=== PATIENT | male | born 1995 | race Caucasian/White ===

== ENCOUNTER 2017-11-25 14:25 | Emergency (ER) | payer SELFPAY ==
[2017-11-25 14:44] VITALS: BP 114/75
--- NOTE | 2017-11-25 15:36 | UC ---
FLU HPI - HPI Summary HPI Summary: 22 male presents to with complaints of feeling dizzy, achey, congested and having fever/chills. States symptoms just began ~3 hours ago. States he was at work and has been exposed to the flu. Is concerned and wanted to get tested. No other complaints. Denies coughing or sore throat. No medications and no PMHx. did have flu shot this year. - History of Current Complaint Chief Complaint: UCGeneralIllness Stated Complaint: FLU LIKE SXS Time Seen by Provider: 11/25/17 14:53 Hx Obtained From: Patient Onset/Duration: Sudden Onset Severity Currently: None Severity Initially: Mild Pain Intensity: 0 Pain Scale Used: 0-10 Numeric Associated Signs & Symptoms: Positive: Myalgia, Nasal Congestion Related Hx: Possible Flu/Infectious Exposure - Allergy/Home Medications Allergies/Adverse Reactions: Allergies Allergy/AdvReac Type Severity Reaction Status Date / Time codeine Allergy Vomiting Verified 11/25/17 14:39 Home Medications: Home Medications NK [No Home Medications Reported] 11/25/17 [History Confirmed 11/25/17] PMH/Surg Hx/FS Hx/Imm Hx - Additional Past Medical History Additional PMH: Denies DM, HTN and asthma - Surgical History Surgical History: Yes Surgery Procedure, Year, and Place: WISDOM TEETH - Family History Known Family History: Positive: None - Social History Alcohol Use: None Substance Use Type: None Smoking Status (MU): Never Smoked Tobacco - Immunization History Vaccination Up to Date: Yes Review of Systems Constitutional: Fever - subjective, Chills Skin: Negative ENT: Nasal Discharge Respiratory: Negative Cardiovascular: Negative Musculoskeletal: Myalgia All Other Systems Reviewed And Are Negative: Yes Physical Exam Triage Information Reviewed: Yes Appearance: Well-Appearing, No Pain Distress, Well-Nourished Vital Signs: Initial Vital Signs Temp 98.1 F 11/25/17 14:39 Pulse 66 11/25/17 14:39 Resp 16 11/25/17 14:39 BP 114/75 11/25/17 14:39 Pulse Ox 98 11/25/17 14:39 Vital Signs Reviewed: Yes Eyes: Positive: Conjunctiva Clear ENT: Positive: Normal ENT inspection, Hearing grossly normal, Pharynx normal, Nasal congestion, TMs normal, Uvula midline. Negative: Tonsillar swelling, Tonsillar exudate Dental: Negative: Percussion Tenderness @, Cervical Lymphadenopathy Neck: Positive: Supple, Nontender, No Lymphadenopathy Respiratory: Positive: Chest non-tender, Lungs clear, Normal breath sounds, No respiratory distress Cardiovascular: Positive: RRR, No Murmur, Pulses Normal Abdomen Description: Positive: Nontender, No Organomegaly, Soft Bowel Sounds: Positive: Present Musculoskeletal: Positive: Strength Intact, ROM Intact Neurological: Positive: Alert Skin Exam: Normal Flu Course/Dx - Course Course Of Treatment: influenza obtained and negative. no other concerns at this time. normal vitals and normal exam. increase fluids, vitamins and rest to avoid illness. aware of worsening signs and symptoms to watch out for. follow up. - Differential Dx/Diagnosis Differential Diagnosis/HQI/PQRI: Upper Respiratory Infection, Other - normal examination Provider Diagnoses: URI, normal examination Discharge - Discharge Plan Condition: Good Disposition: HOME Patient Education Materials: Upper Respiratory Infection (ED), Normal Exam (ED) Referrals: Mj Philip MD [Primary Care Provider] - Additional Instructions: any new or worsening symptoms please seek medical attention. increase fluid intake and rest. recommend taking vitamins and washing hands frequently to avoid illness.
== END 2017-11-25 15:41 | disposition home or self-care (01) ==
LOC: UCCORT 14:25
DX: J06.9 Acute upper respiratory infection, unspecified (principal); Z88.5 Allergy status to narcotic agent
CPT/HCPCS: 87502; 99201; G0463

== ENCOUNTER 2019-09-11 10:42 | Emergency (ER) | payer OTHER ==
[2019-09-11 11:12] VITALS: BP 137/86
--- NOTE | 2019-09-11 12:43 | UC ---
Ear Complaint HPI - HPI Summary HPI Summary: 24-year-old male comes in with a chief complaint of left ear discomfort. On September 02, 2019 patient was cleaning is ears with a Q-tip and he felt like he impacted the ear wax in the left ear canal he's been unable to get it out. He use [id number] irrigation devices and it didn't work. The fevers no chills no runny nose no sore throat no cough no chest congestion. - History of Current Complaint Chief Complaint: UCEar Stated Complaint: LT EAR PAIN Time Seen by Provider: 09/11/19 12:35 Pain Intensity: 0 - Allergies/Home Medications Allergies/Adverse Reactions: Allergies Allergy/AdvReac Type Severity Reaction Status Date / Time codeine Allergy Vomiting Verified 09/11/19 11:08 PMH/Surg Hx/FS Hx/Imm Hx Previously Healthy: Yes - Surgical History Surgical History: Yes Surgery Procedure, Year, and Place: WISDOM TEETH. ear tubes. tonsillectomy - Family History Known Family History: Positive: None - Social History Alcohol Use: None Substance Use Type: None Smoking Status (MU): Never Smoked Tobacco - Immunization History Vaccination Up to Date: Yes Review of Systems All Other Systems Reviewed And Are Negative: Yes Constitutional: Positive: Negative Skin: Positive: Negative Eyes: Positive: Negative ENT: Positive: Ear Ache Respiratory: Positive: Negative Cardiovascular: Positive: Negative Gastrointestinal: Positive: Negative Motor: Positive: Negative Neurovascular: Positive: Negative Musculoskeletal: Positive: Negative Neurological: Positive: Negative Psychological: Positive: Negative Is Patient Immunocompromised?: No Physical Exam Triage Information Reviewed: Yes Appearance: Well-Appearing, No Pain Distress, Well-Nourished Vital Signs: Initial Vital Signs Temp 98.2 F 09/11/19 11:08 Pulse 87 09/11/19 11:08 Resp 14 09/11/19 11:08 BP 137/86 09/11/19 11:08 Pulse Ox 98 09/11/19 11:08 Vital Signs Reviewed: Yes Eye Exam: Normal Eyes: Positive: Conjunctiva Clear ENT: Positive: Pharynx normal, Other - Left cerumen impaction. Right TM is normal without any cerumen in the ear canal. Neck: Positive: Supple Respiratory: Positive: No respiratory distress Musculoskeletal: Positive: Strength Intact, ROM Intact Neurological: Positive: Alert, Muscle Tone Normal Psychological: Positive: Age Appropriate Behavior Skin Exam: Normal Ear Complaint Course/Dx - Course Course Of Treatment: Nursing irrigated the left ear with good success. - Differential Dx/Diagnosis Provider Diagnosis: Left ear impacted cerumen Discharge ED - Sign-Out/Discharge Documenting (check all that apply): Patient Departure All imaging exams completed and their final reports reviewed: No Studies - Discharge Plan Condition: Stable Disposition: HOME Patient Education Materials: Cerumen Impaction (ED) Referrals: Mj Philip MD [Primary Care Provider] - Additional Instructions: FOLLOW UP WITH YOUR DOCTOR IF NOT COMPLETELY IMPROVED. GET REEVALUATED SOONER IF NOT IMPROVING OR WORSE OR ANY QUESTIONS OR CONCERNS. - Billing Disposition and Condition Condition: STABLE Disposition: Home
== END 2019-09-11 13:14 | disposition home or self-care (01) ==
LOC: UCCORT 10:42
DX: H61.22 Impacted cerumen, left ear (principal); Z88.5 Allergy status to narcotic agent
CPT/HCPCS: 99212; G0463